=== PATIENT | male | born 1965 | race Caucasian/White ===

== ENCOUNTER 2016-09-21 06:19 | Day surgery (SDC) | payer MEDICARE, BC ==
[2016-09-21] MEDS ORDERED: Lactated Ringers 1,000 ML IV SCH (07:30)
[2016-09-21] MEDS ORDERED: Propofol 200 MG/20 ML SDV ONE (07:31)
[2016-09-21] MEDS ORDERED: fentaNYL 100 MCG/2 ML SDV ONE (07:31)
[2016-09-21] MEDS ORDERED: Midazolam 1 MG/ML 2 ML SDV ONE (07:31)
[2016-09-21 08:56] VITALS: BP 136/86
--- NOTE | 2016-09-21 13:23 | OR ---
DATE OF PROCEDURE: 09/21/2016 PREOPERATIVE DIAGNOSIS: Strong family history of colon cancer--mother had colon cancer. POSTOPERATIVE DIAGNOSIS: Unremarkable colonoscopy. Strong family history of colon cancer--mother had colon cancer. PROCEDURE: Colonoscopy to the cecum. SURGEON: Chi Reyes MD ANESTHESIA: IV anesthesia with monitored anesthesia care. INDICATION: This 51-year-old white male is referred for a colonoscopy because of a strong family history of colon cancer. His mother had colon cancer. I counseled him for a colonoscopy with possible biopsy and/or polypectomy including risks and alternatives, and he gave his informed consent to proceed. PROCEDURE IN DETAIL: The patient was placed in the left lateral decubitus position. IV anesthesia was administered by the Anesthesia Service. Time-out was held. A rectal exam was performed, which was unremarkable. The flexible video Olympus colonoscope was introduced through his anus, up his rectum, and out his colon all the way to the cecum. Once the cecum was reached, the scope was slowly withdrawn examining the mucosa throughout. No mucosal abnormalities were noted. The scope was retroflexed in the rectum with the distal rectum appearing unremarkable. The scope was straightened and removed. He tolerated the procedure well. Chi Reyes MD /[id number]
== END 2016-09-21 09:10 | disposition home or self-care (01) ==
LOC: JP.SDS 06:19
PROVIDERS: ATTEND Surgery
DX: Z12.11 Encounter for screening for malignant neoplasm of colon (principal); Z80.0 Family history of malignant neoplasm of digestive organs; E03.9 Hypothyroidism, unspecified; G47.33 Obstructive sleep apnea (adult) (pediatric)
CPT/HCPCS: G0105; J2250; J2704; J3010; J7120

== ENCOUNTER 2021-10-16 06:37 | Day surgery (SDC) | payer MEDICARE, BC ==
[2021-10-16] MEDS ORDERED: Lactated Ringers 1,000 ML IV SCH (07:00)
[2021-10-16] MEDS ORDERED: Propofol 200 MG/20 ML SDV ONE (07:14)
[2021-10-16] MEDS ORDERED: Midazolam 1 MG/ML 2 ML SDV ONE (07:14)
[2021-10-16] MEDS ORDERED: fentaNYL 100 MCG/2 ML SDV ONE (07:14)
[2021-10-16 08:47] VITALS: BP 128/80; PULSE 66
== END 2021-10-16 08:57 | disposition home or self-care (01) ==
LOC: JP.SDS 06:37
PROVIDERS: ATTEND Family Medicine
DX: Z12.11 Encounter for screening for malignant neoplasm of colon (principal); D12.2 Benign neoplasm of ascending colon; D12.5 Benign neoplasm of sigmoid colon; K57.30 Diverticulosis of large intestine without perforation or abscess without bleeding; K64.8 Other hemorrhoids; G47.33 Obstructive sleep apnea (adult) (pediatric); E23.2 Diabetes insipidus; E66.9 Obesity, unspecified; Z91.048 Other nonmedicinal substance allergy status; Z80.0 Family history of malignant neoplasm of digestive organs; Z68.32 Body mass index [BMI] 32.0-32.9, adult
CPT/HCPCS: 45380; 88305; J2250; J2704; J3010; J7120